=== PATIENT | male | born 1985 | race Two or more races ===

== ENCOUNTER 2017-06-19 16:11 | Emergency (ER) | payer OTHER ==
[~2017-06-19] VITALS: Ht 167.6 cm; Wt 72.0 kg
[2017-06-19] MEDS ORDERED: PLEASE ENTER HEIGHT AND WEIGHT MC SCH (16:30)
[2017-06-19] MEDS ORDERED: PLEASE ENTER ALLERGIES MC SCH ×2 (16:30)
[2017-06-19] MEDS ORDERED: LIDOCAINE 1%, 20ML INFIL ONE (16:30)
[2017-06-19] MEDS ORDERED: LIDOCAINE 1%, 20ML ONE (16:42)
[2017-06-19 18:03] VITALS: BP 117/82
== END 2017-06-19 18:06 | disposition home or self-care (01) ==
LOC: ED 18:00
DX: S01.312A Laceration without foreign body of left ear, initial encounter (principal); S20.212A Contusion of left front wall of thorax, initial encounter; W06.XXXA Fall from bed, initial encounter; Y93.89 Activity, other specified; Y92.89 Other specified places as the place of occurrence of the external cause; Y99.8 Other external cause status
CPT/HCPCS: 13151

== ENCOUNTER 2020-08-03 22:52 | Inpatient (IN) | payer BC, MEDICAID, OTHER ==
[~2020-08-03] VITALS: Ht 154.9 cm; Wt 85.7 kg
[2020-08-03] MEDS ORDERED: SODIUM CHLORIDE 0.9% 1,000 ML IV ONE (22:59)
[2020-08-03] MEDS ORDERED: SODIUM CHLORIDE FLUSH 10ML SYR IVF ONE (23:00)
[2020-08-03 23:38] LABS: ALANINE AMINOTRANSFERASE 95 U/L (12-78); ALBUMIN 1.6 g/dL (3.4-5.0); ANION GAP 9 mmol/L (5-15); CALCIUM 8.1 mg/dL (8.5-10.1); CHLORIDE 88 mmol/L (98-107); INTERNATIONAL NORMALIZED RATIO 2.96 (0.93-1.1); PROTHROMBIN TIME 30.8 Seconds (9.6-11.5)
[2020-08-03] MEDS ORDERED: LIDOCAINE 1%-EPI 1:100K, 20ML ONE (23:47)
[2020-08-03 23:48] LABS: ALKALINE PHOSPHATASE 188 U/L (45-117)
[2020-08-03 23:50] LABS: CREATININE 2.85 mg/dL (0.7-1.3); TOTAL PROTEIN 6.4 g/dL (6.4-8.2)
[2020-08-03 23:51] LABS: MD YES; MEAN CORPUSCULAR HEMOGLOBIN 34.8 pg (27.5-34.5); MEAN CORPUSCULAR HGB CONC 33.5 g/dL (33.2-36.2); MEAN PLATELET VOLUME 8.3 fL (7.4-10.4); PLATELET COUNT 136 x10^3/uL (130-400); RED BLOOD COUNT 4.25 x10^6/uL (4.38-5.82); RED CELL DISTRIBUTION WIDTH 15.9 % (9.4-14.8)
[2020-08-03 23:52] LABS: BILIRUBIN,TOTAL 25.2 mg/dL (0.2-1.0)
[2020-08-03 23:55] LABS: ANISOCYTOSIS 1+; BAND#(MANUAL) 0.12 x10^3/uL; BANDS%(MANUAL) 1 % (0-7); LYMPH#(MANUAL) 0.72 x10^3/uL (1-3.4); LYMPHS% (MANUAL) 6 % (22-44); MONOS#(MANUAL) 0.48 x10^3/uL (0.3-2.7); MONOS% (MANUAL) 4 % (2-9); SEG#(MANUAL) 10.68 x10^3/uL (1.8-6.8); SEGS% (MANUAL) 89 % (42-75)
[2020-08-03 23:56] LABS: OVALOCYTES 1+; POLYCHROMASIA 1+; TARGET CELLS 1+
[2020-08-03 23:57] LABS: <PLATELET ESTIMATE> ADEQUATE; <PLT MORPHOLOGY> NORMAL PLT MORPH
[2020-08-04] MEDS ORDERED: LIDOCAINE 1%-EPI 1:100K, 20ML INFIL ONE
--- NOTE | 2020-08-04 00:20 | NUR ---
Consent for paracentesis received by this RN with clinical transformation specialist # [id number]. Pt verbalizes understanding of procedure, provides verbal consent. MD Sung krishna
[2020-08-04] MEDS ORDERED: NS + 20MEQ KCL 1,000 ML IV SCH (01:00)
[2020-08-04] MEDS ORDERED: ONDANSETRON ODT 4 MG PO PRN (01:00)
[2020-08-04] MEDS ORDERED: BISACODYL 10 MG SUPP PR PRN (01:00)
[2020-08-04] MEDS ORDERED: CEFTRIAXONE PMX 1GM/50ML 50 ML IV SCH (01:00)
--- NOTE | 2020-08-04 01:15 | NUR ---
Report given to Liss CHAU
[2020-08-04 01:37] VITALS: BP 115/75
[2020-08-04] MEDS: ALBUMIN HUMAN 25% 100 ML IV SCH ×3 (02:01→18:41)
[2020-08-04 05:42] LABS: INTERNATIONAL NORMALIZED RATIO 3.04 (0.93-1.1); PROTHROMBIN TIME 31.7 Seconds (9.6-11.5)
[2020-08-04 05:46] LABS: ALANINE AMINOTRANSFERASE 75 U/L (12-78); ALBUMIN 1.8 g/dL (3.4-5.0); ANION GAP 10 mmol/L (5-15); CALCIUM 7.9 mg/dL (8.5-10.1); CHLORIDE 89 mmol/L (98-107)
[2020-08-04 05:49] LABS: ALKALINE PHOSPHATASE 150 U/L (45-117)
[2020-08-04 06:02] LABS: CREATININE 2.62 mg/dL (0.7-1.3)
[2020-08-04 06:03] LABS: TOTAL PROTEIN 5.7 g/dL (6.4-8.2)
[2020-08-04 06:05] LABS: BILIRUBIN,TOTAL 23.9 mg/dL (0.2-1.0)
[2020-08-04 06:30] LABS: MEAN CORPUSCULAR HEMOGLOBIN 34.9 pg (27.5-34.5); MEAN CORPUSCULAR HGB CONC 33.6 g/dL (33.2-36.2); MEAN PLATELET VOLUME 8.5 fL (7.4-10.4); PLATELET COUNT 121 x10^3/uL (130-400); RED BLOOD COUNT 3.69 x10^6/uL (4.38-5.82); RED CELL DISTRIBUTION WIDTH 16.5 % (9.4-14.8)
[2020-08-04 06:55] LABS: BASOPHILS # (AUTO) 0.02 x10^3/uL (0-0.1); BASOPHILS % (AUTO) 0 % (0-1); EOSINOPHILS # (AUTO) 0.08 x10^3/uL (0-0.4); EOSINOPHILS % (AUTO) 1 % (1-7); LYMPHOCYTES # (AUTO) 1.22 x10^3/uL (1-3.4); LYMPHOCYTES % (AUTO) 11 % (22-44); MD SCAN; MONOCYTES # (AUTO) 0.75 x10^3/uL (0.2-0.8); MONOCYTES % (AUTO) 7 % (2-9); NEUTROPHILS # (AUTO) 9.19 x10^3/uL (1.8-6.8); NEUTROPHILS % (AUTO) 82 % (42-75)
[2020-08-04 07:19] VITALS: BP 104/66
[2020-08-04] MEDS ORDERED: ALBUMIN HUMAN 25% 100 ML IV ONE (08:00)
[2020-08-04] MEDS ORDERED: PHYTONADIONE 5 MG in SODIUM CHLORIDE 0.9% 50 ML IV ONE (08:00)
[2020-08-04] MEDS ORDERED: PANTOPRAZOLE 40MG TABLET PO SCH (08:00)
[2020-08-04] MEDS ORDERED: POTASSIUM CHLORIDE 40 MEQ in SODIUM CHLORIDE 0.9% 500 ML IV ONE (08:30)
[2020-08-04] MEDS: prednisOLONE 15 MG/5 ML ORAL SOLN PO SCH (08:33)
[2020-08-04 08:59] LABS: POTASSIUM,URINE RANDOM 77 mmol/L; SODIUM,URINE RANDOM 13 mmol/L
[2020-08-04 09:01] LABS: CHLORIDE,URINE RANDOM < 10 mmol/L
[2020-08-04 09:04] LABS: MICROSCOPIC INDICATED
[2020-08-04 12:09] VITALS: BP 106/62
[2020-08-04] MEDS: NS + 40MEQ KCL 1,000 ML IV SCH (16:11)
[2020-08-04] MEDS: POTASSIUM CHLORIDE 20 MEQ TAB.ER.PRT PO SCH (17:31)
[2020-08-04 19:50] VITALS: BP 108/63
[2020-08-05 01:03] VITALS: BP 119/80
[2020-08-05] MEDS: ALBUMIN HUMAN 25% 100 ML IV SCH ×3 (03:11→20:12)
[2020-08-05 05:02] LABS: MEAN CORPUSCULAR HGB CONC 33.3 g/dL (33.2-36.2); MEAN PLATELET VOLUME 8.1 fL (7.4-10.4); PLATELET COUNT 115 x10^3/uL (130-400); RED BLOOD COUNT 3.52 x10^6/uL (4.38-5.82); RED CELL DISTRIBUTION WIDTH 16.5 % (9.4-14.8)
[2020-08-05 05:10] LABS: INTERNATIONAL NORMALIZED RATIO 2.71 (0.93-1.1); PROTHROMBIN TIME 28.2 Seconds (9.6-11.5)
[2020-08-05] MEDS: NS + 40MEQ KCL 1,000 ML IV SCH ×2 (05:12→17:37)
[2020-08-05 05:13] LABS: ALBUMIN 2.6 g/dL (3.4-5.0); ANION GAP 8 mmol/L (5-15); CALCIUM 8.2 mg/dL (8.5-10.1); CHLORIDE 93 mmol/L (98-107)
[2020-08-05 05:32] LABS: ALANINE AMINOTRANSFERASE 66 U/L (12-78); ALKALINE PHOSPHATASE 119 U/L (45-117)
[2020-08-05 05:35] LABS: CREATININE 2.14 mg/dL (0.7-1.3)
[2020-08-05 05:36] LABS: BILIRUBIN,TOTAL 25.4 mg/dL (0.2-1.0); TOTAL PROTEIN 5.7 g/dL (6.4-8.2)
[2020-08-05 05:43] LABS: BASOPHILS # (AUTO) 0.04 x10^3/uL (0-0.1); BASOPHILS % (AUTO) 0 % (0-1); EOSINOPHILS # (AUTO) 0.01 x10^3/uL (0-0.4); EOSINOPHILS % (AUTO) 0 % (1-7); LYMPHOCYTES # (AUTO) 0.76 x10^3/uL (1-3.4); LYMPHOCYTES % (AUTO) 6 % (22-44); MD SCAN; MONOCYTES # (AUTO) 0.76 x10^3/uL (0.2-0.8); MONOCYTES % (AUTO) 6 % (2-9); NEUTROPHILS # (AUTO) 10.64 x10^3/uL (1.8-6.8); NEUTROPHILS % (AUTO) 87 % (42-75)
[2020-08-05 07:16] VITALS: BP 100/63
[2020-08-05] MEDS: prednisOLONE 15 MG/5 ML ORAL SOLN PO SCH (09:01)
[2020-08-05] MEDS: K-PHOS NEUTRAL 250MG TAB PO SCH ×2 (09:01→20:14)
[2020-08-05] MEDS: FOLIC ACID 1 MG TABLET PO SCH (09:01)
[2020-08-05] MEDS: MULTIVITAMIN 1 TABLET PO SCH (09:01)
[2020-08-05] MEDS: THIAMINE 100MG TABLET PO SCH (09:01)
[2020-08-05] MEDS: POTASSIUM CHLORIDE 20 MEQ TAB.ER.PRT PO SCH ×2 (09:01→17:41)
[2020-08-05] MEDS ORDERED: POTASSIUM CHLORIDE 40 MEQ in SODIUM CHLORIDE 0.9% 500 ML IV ONE (11:30)
[2020-08-05 12:47] LABS: POTASSIUM,URINE RANDOM 61 mmol/L; SODIUM,URINE RANDOM 11 mmol/L
[2020-08-05 12:54] LABS: CHLORIDE,URINE RANDOM < 10 mmol/L
[2020-08-05 12:55] VITALS: BP 130/86
[2020-08-05 18:55] VITALS: BP 138/88
[2020-08-06 01:53] VITALS: BP 127/87
[2020-08-06] MEDS: ALBUMIN HUMAN 25% 100 ML IV SCH ×3 (04:22→20:38)
[2020-08-06 05:32] LABS: MEAN CORPUSCULAR HEMOGLOBIN 34.8 pg (27.5-34.5); MEAN PLATELET VOLUME 7.7 fL (7.4-10.4); PLATELET COUNT 123 x10^3/uL (130-400); RED BLOOD COUNT 3.52 x10^6/uL (4.38-5.82); RED CELL DISTRIBUTION WIDTH 16.3 % (9.4-14.8)
[2020-08-06 05:47] LABS: CHLORIDE 99 mmol/L (98-107)
[2020-08-06 06:11] LABS: ALANINE AMINOTRANSFERASE 64 U/L (12-78); ALBUMIN 2.9 g/dL (3.4-5.0); ALKALINE PHOSPHATASE 116 U/L (45-117); ANION GAP 8 mmol/L (5-15); CALCIUM 8.4 mg/dL (8.5-10.1)
[2020-08-06 06:15] LABS: CREATININE 1.71 mg/dL (0.7-1.3); TOTAL PROTEIN 5.6 g/dL (6.4-8.2)
[2020-08-06 06:16] LABS: BILIRUBIN,TOTAL 25.6 mg/dL (0.2-1.0)
[2020-08-06 06:42] VITALS: BP 127/71
[2020-08-06 06:46] LABS: BASOPHILS # (AUTO) 0.11 x10^3/uL (0-0.1); BASOPHILS % (AUTO) 1 % (0-1); EOSINOPHILS % (AUTO) 0 % (1-7); LYMPHOCYTES # (AUTO) 0.97 x10^3/uL (1-3.4); LYMPHOCYTES % (AUTO) 7 % (22-44); MD SCAN; MONOCYTES # (AUTO) 0.67 x10^3/uL (0.2-0.8); MONOCYTES % (AUTO) 5 % (2-9); NEUTROPHILS # (AUTO) 12.05 x10^3/uL (1.8-6.8); NEUTROPHILS % (AUTO) 87 % (42-75)
[2020-08-06] MEDS: POTASSIUM CHLORIDE 20 MEQ TAB.ER.PRT PO SCH ×2 (08:16→17:15)
[2020-08-06] MEDS: FOLIC ACID 1 MG TABLET PO SCH (08:17)
[2020-08-06] MEDS: MULTIVITAMIN 1 TABLET PO SCH (08:17)
[2020-08-06] MEDS: prednisOLONE 15 MG/5 ML ORAL SOLN PO SCH (08:17)
[2020-08-06] MEDS: THIAMINE 100MG TABLET PO SCH (08:17)
[2020-08-06 12:22] VITALS: BP 126/78
[2020-08-06 16:18] VITALS: BP 134/97
[2020-08-06 19:47] VITALS: BP 144/95
[2020-08-06] MEDS: morphine SULFATE 10 MG/ML, 1ML IVPush PRN (23:50)
[2020-08-07 03:31] VITALS: BP 157/99
[2020-08-07] MEDS: ALBUMIN HUMAN 25% 100 ML IV SCH ×3 (03:32→19:47)
[2020-08-07 06:05] LABS: MEAN CORPUSCULAR HEMOGLOBIN 35.1 pg (27.5-34.5); MEAN PLATELET VOLUME 8.1 fL (7.4-10.4); PLATELET COUNT 139 x10^3/uL (130-400); RED BLOOD COUNT 3.49 x10^6/uL (4.38-5.82); RED CELL DISTRIBUTION WIDTH 16.5 % (9.4-14.8)
[2020-08-07 06:37] LABS: BASOPHILS # (AUTO) 0.04 x10^3/uL (0-0.1); BASOPHILS % (AUTO) 0 % (0-1); EOSINOPHILS # (AUTO) 0.01 x10^3/uL (0-0.4); EOSINOPHILS % (AUTO) 0 % (1-7); LYMPHOCYTES # (AUTO) 0.96 x10^3/uL (1-3.4); LYMPHOCYTES % (AUTO) 7 % (22-44); MD SCAN; MONOCYTES # (AUTO) 0.59 x10^3/uL (0.2-0.8); MONOCYTES % (AUTO) 5 % (2-9); NEUTROPHILS # (AUTO) 11.45 x10^3/uL (1.8-6.8); NEUTROPHILS % (AUTO) 88 % (42-75)
[2020-08-07 06:41] LABS: ALBUMIN 3.3 g/dL (3.4-5.0); ANION GAP 7 mmol/L (5-15); CALCIUM 8.8 mg/dL (8.5-10.1); CHLORIDE 103 mmol/L (98-107)
[2020-08-07 07:00] LABS: ALANINE AMINOTRANSFERASE 70 U/L (12-78); ALKALINE PHOSPHATASE 117 U/L (45-117)
[2020-08-07 07:03] LABS: CREATININE 1.62 mg/dL (0.7-1.3); TOTAL PROTEIN 5.8 g/dL (6.4-8.2)
[2020-08-07 07:05] LABS: BILIRUBIN,TOTAL 26.7 mg/dL (0.2-1.0)
[2020-08-07 07:45] VITALS: BP 132/87
[2020-08-07] MEDS: THIAMINE 100MG TABLET PO SCH (08:15)
[2020-08-07] MEDS: MULTIVITAMIN 1 TABLET PO SCH (08:15)
[2020-08-07] MEDS: FOLIC ACID 1 MG TABLET PO SCH (08:15)
[2020-08-07] MEDS: POTASSIUM CHLORIDE 20 MEQ TAB.ER.PRT PO SCH ×2 (08:15→17:19)
[2020-08-07] MEDS: prednisOLONE 15 MG/5 ML ORAL SOLN PO SCH (08:16)
[2020-08-07 12:44] VITALS: BP 133/87
[2020-08-07] MEDS ORDERED: LIDOCAINE 1%, 10ML ONE (13:48)
[2020-08-07 14:10] VITALS: BP 120/82
[2020-08-07 18:55] VITALS: BP 114/72
[2020-08-08] MEDS: morphine SULFATE 10 MG/ML, 1ML IVPush PRN (01:25)
[2020-08-08 01:28] VITALS: BP 121/73
[2020-08-08] MEDS: ALBUMIN HUMAN 25% 100 ML IV SCH (04:16)
[2020-08-08 06:02] LABS: MEAN CORPUSCULAR HEMOGLOBIN 34.5 pg (27.5-34.5); MEAN CORPUSCULAR HGB CONC 32.5 g/dL (33.2-36.2); MEAN PLATELET VOLUME 8.1 fL (7.4-10.4); PLATELET COUNT 154 x10^3/uL (130-400); RED BLOOD COUNT 3.78 x10^6/uL (4.38-5.82); RED CELL DISTRIBUTION WIDTH 17.1 % (9.4-14.8)
[2020-08-08 06:08] LABS: ALBUMIN 3.1 g/dL (3.4-5.0); ANION GAP 8 mmol/L (5-15); CALCIUM 8.6 mg/dL (8.5-10.1); CHLORIDE 103 mmol/L (98-107)
[2020-08-08 06:12] LABS: ALANINE AMINOTRANSFERASE 73 U/L (12-78); ALKALINE PHOSPHATASE 123 U/L (45-117)
[2020-08-08 06:14] LABS: CREATININE 1.56 mg/dL (0.7-1.3); TOTAL PROTEIN 5.4 g/dL (6.4-8.2)
[2020-08-08 06:17] LABS: BILIRUBIN,TOTAL 24.7 mg/dL (0.2-1.0)
[2020-08-08 06:36] LABS: BASOPHILS # (AUTO) 0.09 x10^3/uL (0-0.1); BASOPHILS % (AUTO) 1 % (0-1); EOSINOPHILS # (AUTO) 0.01 x10^3/uL (0-0.4); EOSINOPHILS % (AUTO) 0 % (1-7); LYMPHOCYTES % (AUTO) 9 % (22-44); MD SCAN; MONOCYTES # (AUTO) 0.57 x10^3/uL (0.2-0.8); MONOCYTES % (AUTO) 4 % (2-9); NEUTROPHILS # (AUTO) 12.94 x10^3/uL (1.8-6.8); NEUTROPHILS % (AUTO) 87 % (42-75)
[2020-08-08 08:01] VITALS: BP 125/78
[2020-08-08] MEDS: MULTIVITAMIN 1 TABLET PO SCH (08:57)
[2020-08-08] MEDS: THIAMINE 100MG TABLET PO SCH (08:57)
[2020-08-08] MEDS: FOLIC ACID 1 MG TABLET PO SCH (08:57)
[2020-08-08] MEDS: POTASSIUM CHLORIDE 20 MEQ TAB.ER.PRT PO SCH (08:57)
[2020-08-08] MEDS ORDERED: THIA100T67 PO (09:05)
[2020-08-08] MEDS ORDERED: POTA20TA6 PO (09:05)
[2020-08-08] MEDS ORDERED: MULT-449 PO (09:05)
[2020-08-08] MEDS ORDERED: FOLI-17 PO (09:05)
[2020-08-08] MEDS ORDERED: PRED5TAB25 PO (09:05)
[2020-08-08] MEDS: prednisOLONE 15 MG/5 ML ORAL SOLN PO SCH (09:23)
== END 2020-08-08 12:20 | disposition home or self-care (01) | DRG 432 ==
LOC: ED 08-04 00:16 → EDIP 08-04 00:44 → 5SO 08-04 01:31 → DCLOUNGE 08-08 12:07
PROVIDERS: ADMIT Family Medicine; ATTEND Family Medicine
PROC: 0T9B70Z Drainage of Bladder with Drainage Device, Via Natural or Artificial Opening (ICD-10-PCS; principal; 2020-08-04)
PROC: 0W9G3ZZ Drainage of Peritoneal Cavity, Percutaneous Approach (ICD-10-PCS; 2020-08-07)
DX: K70.40 Alcoholic hepatic failure without coma (principal); K76.7 Hepatorenal syndrome; E43 Unspecified severe protein-calorie malnutrition; N17.9 Acute kidney failure, unspecified; E87.1 Hypo-osmolality and hyponatremia; D68.9 Coagulation defect, unspecified; K70.31 Alcoholic cirrhosis of liver with ascites; K70.11 Alcoholic hepatitis with ascites; E87.6 Hypokalemia; E83.39 Other disorders of phosphorus metabolism; D50.9 Iron deficiency anemia, unspecified; D53.9 Nutritional anemia, unspecified; D69.6 Thrombocytopenia, unspecified; D75.89 Other specified diseases of blood and blood-forming organs; F10.20 Alcohol dependence, uncomplicated; G40.909 Epilepsy, unspecified, not intractable, without status epilepticus; D72.829 Elevated white blood cell count, unspecified; K21.9 Gastro-esophageal reflux disease without esophagitis; Z68.35 Body mass index [BMI] 35.0-35.9, adult
CPT/HCPCS: 36415; 82042; 89051; 96374; 96375; 99285; J3490; 49083; 76770; 80053; 80074; 80307; 81001; 82140; 82436; 82570; 82607; 83615; 83690; 83735; 83970; 84100; 84133; 84300; 85025; 85610; 85730; 87070; 87086; 87205; G0378; J0696; J3430; J3480; P9047; J2270; J7040; J7510

== ENCOUNTER 2020-08-09 14:07 | Inpatient (IN) | payer MEDICAID ==
[~2020-08-09] VITALS: Ht 165.1 cm; Wt 85.4 kg
[~2020-08-09 14:07] MED LIST: FOLI-17 PO; MULT-449 PO; POTA20TA6 PO; PRED5TAB25 PO; THIA100T67 PO
--- NOTE | 2020-08-09 14:23 | NUR ---
PATIENT WALKED BACK FROM TRIAGE WITH CHIEF C/O LEFT SIDED ABDOMINAL PAIN, PATIENT REPORTS BLACK STOOLS THAT STARTED TODAY. PER PATIENT'S SPOUSE PATIENT WAS ADMITTED TO HOSPITAL RECENTLY FOR LIVER FAILURE AND DISCHARGED YESTERDAY. NO ACUTE SIGNS OF DISTRESS, CONNECTED TO VITAL SIGN MACHINE, PATIENT C/O 6-7/10 ABDOMINAL PAIN RIGHT NOW.
--- NOTE | 2020-08-09 14:56 | NUR ---
20 GAUGE IV STARTED IN RIGHT AC. EDUCATED PATIENT AND SIGNIFICANT OTHER ON NEED FOR URINE SAMPLE.
[2020-08-09] MEDS ORDERED: SODIUM CHLORIDE FLUSH 10ML SYR IVF ONE (15:00)
[2020-08-09 15:22] LABS: MEAN CORPUSCULAR HEMOGLOBIN 34.5 pg (27.5-34.5); MEAN CORPUSCULAR HGB CONC 32.3 g/dL (33.2-36.2); MEAN PLATELET VOLUME 8.2 fL (7.4-10.4); PLATELET COUNT 192 x10^3/uL (130-400); RED BLOOD COUNT 3.99 x10^6/uL (4.38-5.82); RED CELL DISTRIBUTION WIDTH 17.2 % (9.4-14.8)
[2020-08-09 15:23] LABS: ALANINE AMINOTRANSFERASE 103 U/L (12-78); ALBUMIN 2.9 g/dL (3.4-5.0); ANION GAP 8 mmol/L (5-15); CALCIUM 8.8 mg/dL (8.5-10.1); CHLORIDE 104 mmol/L (98-107)
[2020-08-09 15:32] LABS: INTERNATIONAL NORMALIZED RATIO 2.32 (0.93-1.1); PROTHROMBIN TIME 24.1 Seconds (9.6-11.5)
[2020-08-09 15:34] LABS: ALKALINE PHOSPHATASE 159 U/L (45-117)
[2020-08-09 15:40] LABS: CREATININE 1.47 mg/dL (0.7-1.3)
[2020-08-09 15:41] LABS: TOTAL PROTEIN 5.6 g/dL (6.4-8.2)
[2020-08-09 15:42] LABS: BILIRUBIN,TOTAL 27.3 mg/dL (0.2-1.0)
[2020-08-09 15:59] LABS: MICROSCOPIC INDICATED
[2020-08-09 16:00] LABS: MD YES
[2020-08-09 16:03] LABS: BAND#(MANUAL) 0.83 x10^3/uL; BANDS%(MANUAL) 5 % (0-7); EOS#(MANUAL) 0.33 x10^3/uL (0.0-0.4); EOS% (MANUAL) 2 % (1-7); LYMPH#(MANUAL) 1.16 x10^3/uL (1-3.4); LYMPHS% (MANUAL) 7 % (22-44); MONOS#(MANUAL) 1.16 x10^3/uL (0.3-2.7); MONOS% (MANUAL) 7 % (2-9); SEG#(MANUAL) 13.04 x10^3/uL (1.8-6.8); SEGS% (MANUAL) 79 % (42-75)
[2020-08-09 16:04] LABS: <PLATELET ESTIMATE> ADEQUATE; <PLT MORPHOLOGY> NORMAL PLT MORPH; POLYCHROMASIA 1+; TARGET CELLS 1+
[2020-08-09 16:06] LABS: SCHISTOCYTES 1+
--- NOTE | 2020-08-09 16:11 | NUR ---
Break RN note: Pt ambulatory to bathroom and back to bed without difficulty. Pt able to position self for comfort in bed, denies other needs.
[2020-08-09] MEDS ORDERED: SODIUM CHLORIDE FLUSH 10ML SYR IVF PRN (17:00)
--- NOTE | 2020-08-09 17:19 | NUR ---
PATIENT RESTING IN GURNEY WATCHING TV, SPOUSE AT BEDSIDE, NO SIGNS OF ACUTE DISTRESS, CONNECTED TO VITALS MACHINE, CALL LIGHT WITHIN REACH.
[2020-08-09] MEDS ORDERED: ONDANSETRON ODT 4 MG PO PRN (17:30)
[2020-08-09] MEDS ORDERED: DOCUSATE 100 MG CAPSULE PO PRN (17:30)
[2020-08-09] MEDS ORDERED: hydrALAzine 20 MG/ML, 1ML IVPush PRN (17:30)
[2020-08-09] MEDS ORDERED: ONDANSETRON 2MG/ML, 2ML IVPush PRN (17:30)
[2020-08-09] MEDS ORDERED: CEFTRIAXONE PMX 1GM/50ML 0 ML ONE (18:02)
--- NOTE | 2020-08-09 18:04 | NUR ---
BLOOD CULTURES COLLECTED PRIOR TO ABX
[2020-08-09] MEDS ORDERED: CEFTRIAXONE PMX 2GM/50ML 50 ML ONE (18:06)
[2020-08-09] MEDS: CEFTRIAXONE PMX 2GM/50ML 50 ML IV SCH (18:09)
--- NOTE | 2020-08-09 18:41 | NUR ---
REPORT CALLED TO KANDI BAGLEY ON MEDICAL TELEMETRY FOR TRANSFER OF CARE.
[2020-08-09 20:36] VITALS: BP 119/89
[2020-08-09] MEDS: PANTOPRAZOLE 40 MG IV IVPush SCH (21:43)
[2020-08-09] MEDS: MOVIPREP POWDER 1 PREP KIT PO SCH (21:43)
[2020-08-10 02:04] VITALS: BP 106/64
[2020-08-10 04:53] LABS: BASOPHILS # (AUTO) 0.24 x10^3/uL (0-0.1); BASOPHILS % (AUTO) 2 % (0-1); EOSINOPHILS # (AUTO) 0.27 x10^3/uL (0-0.4); EOSINOPHILS % (AUTO) 2 % (1-7); LYMPHOCYTES # (AUTO) 1.49 x10^3/uL (1-3.4); LYMPHOCYTES % (AUTO) 11 % (22-44); MD NO; MEAN CORPUSCULAR HEMOGLOBIN 35.3 pg (27.5-34.5); MEAN CORPUSCULAR HGB CONC 33.5 g/dL (33.2-36.2); MEAN PLATELET VOLUME 8.5 fL (7.4-10.4); MONOCYTES # (AUTO) 0.88 x10^3/uL (0.2-0.8); MONOCYTES % (AUTO) 6 % (2-9); NEUTROPHILS # (AUTO) 11.07 x10^3/uL (1.8-6.8); NEUTROPHILS % (AUTO) 79 % (42-75); PLATELET COUNT 164 x10^3/uL (130-400); RED BLOOD COUNT 3.72 x10^6/uL (4.38-5.82); RED CELL DISTRIBUTION WIDTH 17.1 % (9.4-14.8)
[2020-08-10 05:06] LABS: ALBUMIN 2.8 g/dL (3.4-5.0); ANION GAP 11 mmol/L (5-15); CALCIUM 8.8 mg/dL (8.5-10.1); CHLORIDE 108 mmol/L (98-107)
[2020-08-10 05:21] LABS: ALANINE AMINOTRANSFERASE 108 U/L (12-78); ALKALINE PHOSPHATASE 133 U/L (45-117)
[2020-08-10 05:31] LABS: CREATININE 1.37 mg/dL (0.7-1.3)
[2020-08-10 05:33] LABS: BILIRUBIN,TOTAL 25.9 mg/dL (0.2-1.0); TOTAL PROTEIN 5.3 g/dL (6.4-8.2)
[2020-08-10 07:18] VITALS: BP 116/75
[2020-08-10] MEDS ORDERED: PHYTONADIONE 10 MG/ML, 1ML SQ ONE (07:30)
[2020-08-10] MEDS: PANTOPRAZOLE 40 MG IV IVPush SCH ×2 (08:05→21:48)
[2020-08-10] MEDS: MOVIPREP POWDER 1 PREP KIT PO SCH (09:00)
[2020-08-10] MEDS ORDERED: PROPOFOL 10 MG/ML, 20ML ONE ×4 (09:09→09:32)
[2020-08-10] MEDS ORDERED: OCTREOTIDE 50 MCG/ML, 1ML (0.05MG/ML) IVPush ONE (10:00)
[2020-08-10] MEDS: MORPHINE SULFATE 4 MG/ML, 1ML IVPush PRN ×2 (10:38→17:40)
[2020-08-10] MEDS: OCTREOTIDE 500 MCG in SODIUM CHLORIDE 0.9% 99 ML IV SCH ×2 (11:04→22:28)
[2020-08-10 12:28] VITALS: BP 107/70
[2020-08-10] MEDS: CEFTRIAXONE PMX 2GM/50ML 50 ML IV SCH (17:30)
[2020-08-10 19:54] VITALS: BP 131/81
[2020-08-10] MEDS: THIAMINE 100MG TABLET PO SCH (21:48)
[2020-08-11 00:16] VITALS: BP 120/77
[2020-08-11 04:31] LABS: BASOPHILS # (AUTO) 0.05 x10^3/uL (0-0.1); BASOPHILS % (AUTO) 0 % (0-1); EOSINOPHILS # (AUTO) 0.31 x10^3/uL (0-0.4); EOSINOPHILS % (AUTO) 2 % (1-7); LYMPHOCYTES # (AUTO) 1.32 x10^3/uL (1-3.4); LYMPHOCYTES % (AUTO) 10 % (22-44); MD NO; MEAN CORPUSCULAR HEMOGLOBIN 35.4 pg (27.5-34.5); MEAN CORPUSCULAR HGB CONC 33.6 g/dL (33.2-36.2); MEAN PLATELET VOLUME 8.5 fL (7.4-10.4); MONOCYTES # (AUTO) 0.73 x10^3/uL (0.2-0.8); MONOCYTES % (AUTO) 6 % (2-9); NEUTROPHILS # (AUTO) 10.86 x10^3/uL (1.8-6.8); NEUTROPHILS % (AUTO) 82 % (42-75); PLATELET COUNT 163 x10^3/uL (130-400); RED CELL DISTRIBUTION WIDTH 17.7 % (9.4-14.8)
[2020-08-11 04:36] LABS: ALANINE AMINOTRANSFERASE 110 U/L (12-78); ALBUMIN 2.6 g/dL (3.4-5.0); ANION GAP 8 mmol/L (5-15); CALCIUM 8.1 mg/dL (8.5-10.1); CHLORIDE 104 mmol/L (98-107)
[2020-08-11 04:47] LABS: ALKALINE PHOSPHATASE 132 U/L (45-117)
[2020-08-11 04:52] LABS: CREATININE 1.46 mg/dL (0.7-1.3); TOTAL PROTEIN 5.3 g/dL (6.4-8.2)
[2020-08-11 04:53] LABS: BILIRUBIN,TOTAL 29.5 mg/dL (0.2-1.0)
[2020-08-11 05:45] VITALS: BP 119/79
[2020-08-11] MEDS: MORPHINE SULFATE 4 MG/ML, 1ML IVPush PRN (05:53)
[2020-08-11 06:50] VITALS: BP 122/75
[2020-08-11] MEDS: POTASSIUM CHLORIDE 20 MEQ TAB.ER.PRT PO SCH (09:00)
[2020-08-11] MEDS ORDERED: POTASSIUM CHLORIDE 10 MEQ TABLET.ER ONE (09:18)
[2020-08-11] MEDS: PANTOPRAZOLE 40 MG IV IVPush SCH (09:24)
[2020-08-11] MEDS: OCTREOTIDE 500 MCG in SODIUM CHLORIDE 0.9% 99 ML IV SCH (09:24)
[2020-08-11] MEDS: FOLIC ACID 1 MG TABLET PO SCH (09:25)
[2020-08-11] MEDS: MULTIVITAMIN 1 TABLET PO SCH (09:25)
[2020-08-11] MEDS: THIAMINE 100MG TABLET PO SCH ×2 (09:25→19:42)
[2020-08-11 12:02] VITALS: BP 132/79
[2020-08-11] MEDS ORDERED: LIDOCAINE 1%, 10ML ONE (12:34)
[2020-08-11] MEDS: OMEPRAZOLE 20 MG CAPSULE.DR PO SCH (15:42)
[2020-08-11] MEDS: CEFTRIAXONE PMX 2GM/50ML 50 ML IV SCH (17:23)
[2020-08-11] MEDS: OCTREOTIDE 1,250 MCG in SODIUM CHLORIDE 0.9% 247.5 ML IV PRN (18:51)
[2020-08-11 19:48] VITALS: BP 128/72
[2020-08-12 01:39] VITALS: BP 119/67
[2020-08-12 05:43] LABS: INTERNATIONAL NORMALIZED RATIO 2.16 (0.93-1.1); PROTHROMBIN TIME 22.4 Seconds (9.6-11.5)
[2020-08-12 05:48] LABS: ALANINE AMINOTRANSFERASE 102 U/L (12-78); ALBUMIN 2.4 g/dL (3.4-5.0); ANION GAP 7 mmol/L (5-15); CALCIUM 8.1 mg/dL (8.5-10.1); CHLORIDE 100 mmol/L (98-107)
[2020-08-12] MEDS: OMEPRAZOLE 20 MG CAPSULE.DR PO SCH ×2 (05:49→16:57)
[2020-08-12 05:59] LABS: ALKALINE PHOSPHATASE 135 U/L (45-117)
[2020-08-12 06:01] LABS: CREATININE 1.36 mg/dL (0.7-1.3)
[2020-08-12 06:02] LABS: TOTAL PROTEIN 5.2 g/dL (6.4-8.2)
[2020-08-12 06:03] LABS: BILIRUBIN,TOTAL 32.9 mg/dL (0.2-1.0)
[2020-08-12 06:15] LABS: MEAN CORPUSCULAR HEMOGLOBIN 35.6 pg (27.5-34.5); MEAN CORPUSCULAR HGB CONC 33.5 g/dL (33.2-36.2); MEAN PLATELET VOLUME 8.4 fL (7.4-10.4); PLATELET COUNT 156 x10^3/uL (130-400); RED BLOOD COUNT 3.64 x10^6/uL (4.38-5.82); RED CELL DISTRIBUTION WIDTH 17.2 % (9.4-14.8)
[2020-08-12 06:16] LABS: MD SCAN
[2020-08-12 06:29] VITALS: BP 117/78
[2020-08-12 06:46] LABS: BASOPHILS # (AUTO) 0.06 x10^3/uL (0-0.1); BASOPHILS % (AUTO) 0 % (0-1); EOSINOPHILS % (AUTO) 2 % (1-7); LYMPHOCYTES # (AUTO) 1.64 x10^3/uL (1-3.4); LYMPHOCYTES % (AUTO) 11 % (22-44); MONOCYTES # (AUTO) 1.25 x10^3/uL (0.2-0.8); MONOCYTES % (AUTO) 9 % (2-9); NEUTROPHILS % (AUTO) 78 % (42-75)
[2020-08-12] MEDS: MORPHINE SULFATE 4 MG/ML, 1ML IVPush PRN ×2 (07:07→19:46)
[2020-08-12] MEDS: THIAMINE 100MG TABLET PO SCH ×2 (08:18→19:46)
[2020-08-12] MEDS: POTASSIUM CHLORIDE 20 MEQ TAB.ER.PRT PO SCH (08:18)
[2020-08-12] MEDS: MULTIVITAMIN 1 TABLET PO SCH (08:19)
[2020-08-12] MEDS: FOLIC ACID 1 MG TABLET PO SCH (08:19)
[2020-08-12] MEDS ORDERED: LIDOCAINE 1%, 10ML ONE (11:28)
[2020-08-12 13:52] VITALS: BP 93/54
[2020-08-12] MEDS ORDERED: ALBUMIN HUMAN 5% 250 ML IV ONE (14:30)
[2020-08-12] MEDS: CEFTRIAXONE PMX 2GM/50ML 50 ML IV SCH (16:57)
[2020-08-12 18:45] VITALS: BP 98/57
[2020-08-13 01:47] VITALS: BP 95/54
[2020-08-13] MEDS: OMEPRAZOLE 20 MG CAPSULE.DR PO SCH ×2 (06:19→16:36)
[2020-08-13 08:01] VITALS: BP 100/62
[2020-08-13] MEDS: MULTIVITAMIN 1 TABLET PO SCH (09:10)
[2020-08-13] MEDS: POTASSIUM CHLORIDE 20 MEQ TAB.ER.PRT PO SCH (09:10)
[2020-08-13] MEDS: THIAMINE 100MG TABLET PO SCH (09:10)
[2020-08-13] MEDS: FOLIC ACID 1 MG TABLET PO SCH (09:10)
[2020-08-13] MEDS: OCTREOTIDE 1,250 MCG in SODIUM CHLORIDE 0.9% 247.5 ML IV PRN (10:04)
[2020-08-13 13:05] VITALS: BP 116/79
[2020-08-13] MEDS ORDERED: LIDOCAINE 1%, 10ML ONE (15:44)
== END 2020-08-13 17:00 | disposition home or self-care (01) | DRG 280 ==
LOC: ED 15:36 → EDIP 16:58 → 4WST 19:15 → DCLOUNGE 08-13 16:50
PROVIDERS: ADMIT Hospitalist; ATTEND Family Medicine
PROC: 0DJD8ZZ Inspection of Lower Intestinal Tract, Via Natural or Artificial Opening Endoscopic (ICD-10-PCS; 2020-08-10)
PROC: 06L38CZ Occlusion of Esophageal Vein with Extraluminal Device, Via Natural or Artificial Opening Endoscopic (ICD-10-PCS; principal; 2020-08-10 09:00)
PROC: 0W9G3ZZ Drainage of Peritoneal Cavity, Percutaneous Approach (ICD-10-PCS; 2020-08-11)
PROC: 0W9G3ZZ Drainage of Peritoneal Cavity, Percutaneous Approach (ICD-10-PCS; 2020-08-12)
PROC: 0W9G3ZZ Drainage of Peritoneal Cavity, Percutaneous Approach (ICD-10-PCS; 2020-08-13)
DX: K70.31 Alcoholic cirrhosis of liver with ascites (principal); K64.8 Other hemorrhoids; K92.1 Melena; K76.6 Portal hypertension; N17.9 Acute kidney failure, unspecified; R65.10 Systemic inflammatory response syndrome (SIRS) of non-infectious origin without acute organ dysfunction; D68.4 Acquired coagulation factor deficiency; I85.10 Secondary esophageal varices without bleeding; K70.40 Alcoholic hepatic failure without coma; G40.909 Epilepsy, unspecified, not intractable, without status epilepticus; E83.39 Other disorders of phosphorus metabolism; I10 Essential (primary) hypertension; Z20.828 Contact with and (suspected) exposure to other viral communicable diseases; K31.89 Other diseases of stomach and duodenum; I86.8 Varicose veins of other specified sites; K63.5 Polyp of colon; D72.829 Elevated white blood cell count, unspecified; D64.9 Anemia, unspecified; K21.9 Gastro-esophageal reflux disease without esophagitis; Z79.899 Other long term (current) drug therapy
CPT/HCPCS: 36415; 84145; 99285; J3490; 49083; 80053; 81001; 83690; 84100; 85014; 85018; 85025; 85610; 85730; 87040; 87086; 87635; G0378; J0696; J2354; J2704; J3430; P9041; C9113; J2270; J7050; P9045

== ENCOUNTER 2020-08-18 08:52 | Emergency (ER) | payer MEDICAID ==
[~2020-08-18] VITALS: Ht 172.7 cm; Wt 76.6 kg
[2020-08-18 08:56] VITALS: BP 102/72
[2020-08-18] MEDS ORDERED: HYDROcodone/APAP 5/325 TABLET PO ONE (09:00)
== END 2020-08-18 09:49 | disposition home or self-care (01) ==
LOC: ED 09:20
DX: K70.31 Alcoholic cirrhosis of liver with ascites (principal); K21.9 Gastro-esophageal reflux disease without esophagitis; G40.909 Epilepsy, unspecified, not intractable, without status epilepticus
CPT/HCPCS: 99283

== ENCOUNTER 2020-08-22 08:17 | Emergency (ER) | payer MEDICAID ==
[~2020-08-22] VITALS: Ht 172.7 cm; Wt 77.0 kg
[2020-08-22 10:08] LABS: BASOPHILS % (AUTO) 0 % (0-1); EOSINOPHILS % (AUTO) 0 % (1-7); LYMPHOCYTES % (AUTO) 4 % (22-44); MEAN CORPUSCULAR HEMOGLOBIN 34.8 pg (27.5-34.5); MEAN CORPUSCULAR HGB CONC 33.6 g/dL (33.2-36.2); MEAN PLATELET VOLUME 8.9 fL (7.4-10.4); MONOCYTES % (AUTO) 4 % (2-9); NEUTROPHILS % (AUTO) 91 % (42-75); PLATELET COUNT 228 x10^3/uL (130-400); RED BLOOD COUNT 4.34 x10^6/uL (4.38-5.82); RED CELL DISTRIBUTION WIDTH 18.3 % (9.4-14.8)
[2020-08-22 10:11] LABS: ALANINE AMINOTRANSFERASE 135 U/L (12-78); ALBUMIN 2.2 g/dL (3.4-5.0); ANION GAP 10 mmol/L (5-15); CALCIUM 8.5 mg/dL (8.5-10.1); CHLORIDE 94 mmol/L (98-107)
[2020-08-22 10:21] LABS: ALKALINE PHOSPHATASE 227 U/L (45-117)
[2020-08-22 10:22] LABS: CREATININE 1.37 mg/dL (0.7-1.3); TOTAL PROTEIN 5.9 g/dL (6.4-8.2)
[2020-08-22 10:24] LABS: BILIRUBIN,TOTAL 34.7 mg/dL (0.2-1.0)
[2020-08-22 10:26] LABS: MD SCAN
--- NOTE | 2020-08-22 11:36 | NUR ---
GERIATRIC PERSONAL CARE AIDE: PT TO ROOM FROM LOBBY.
--- NOTE | 2020-08-22 11:43 | NUR ---
PT HERE W DAUGHTER FROM HOME FOR BELLY TAP. LAST WEEK 4.5 LITERS OFF. HEAVY DRINKER TIL 7 WKS AGO. TOLD TO COME BACK 1 WK LATER. +FLUID WAVE. SOME PAIN. EATING/DRINKING/BREATHING OK. VSS. OOB TO BATHROOM. CALL HELEN.
--- NOTE | 2020-08-22 12:23 | NUR ---
LABS ADDED ON. VSS. NAD.
[2020-08-22] MEDS ORDERED: metroNIDAZOLE 500 MG TABLET ONE (12:56)
[2020-08-22] MEDS ORDERED: CIPROFLOXACIN 500 MG TABLET ONE (12:56)
[2020-08-22] MEDS ORDERED: CIPROFLOXACIN 500 MG TABLET PO ONE (13:00)
[2020-08-22] MEDS ORDERED: ALBUMIN HUMAN 25% 100 ML IV PRN (13:00)
[2020-08-22] MEDS ORDERED: metroNIDAZOLE 500 MG TABLET PO ONE (13:00)
[2020-08-22] MEDS ORDERED: LIDOCAINE 1%, 10ML ONE (13:09)
[2020-08-22 13:11] LABS: INTERNATIONAL NORMALIZED RATIO 2.28 (0.93-1.1); PROTHROMBIN TIME 23.7 Seconds (9.6-11.5)
--- NOTE | 2020-08-22 13:27 | NUR ---
ALBUMIN REQUESTED FROM PHARMACY.
--- NOTE | 2020-08-22 13:56 | NUR ---
ASSUMED CARE OF PATIENT. REPORT GIVEN FROM KANDI TOM PT IS IN RADIOLOGY
--- NOTE | 2020-08-22 13:59 | NUR ---
REPORT TO KRYSTYNA CHAU.
--- NOTE | 2020-08-22 15:21 | NUR ---
PT BACK FROM RADIOLOGY. SPOKE WITH JUAN MANUEL CARROLL. PROVIDER WANTS ALBUMIN GIVEN. VS STABLE. CALL LIGHT IN PLACE. WILL CONTINUE TO MONITOR.
--- NOTE | 2020-08-22 15:48 | NUR ---
JUAN MANUEL CARROLL HAS UPDATED PATIENT.
--- NOTE | 2020-08-22 16:09 | NUR ---
PT RESTING IN ROOM. NO ACUTE DISTRESS NOTED. VS STABLE. CALL LIGHT IN PLACE. WILL CONTINUE TO MONITOR.
[2020-08-22 16:40] VITALS: BP 106/70
--- NOTE | 2020-08-22 16:40 | NUR ---
JUAN MANUEL CARROLL HAS UPDATED PATIENT.
[2020-08-26] MEDS ORDERED: FURO-93 PO (07:18)
[2020-08-26] MEDS ORDERED: SPIR25TA5 PO (07:18)
[2020-08-26] MEDS ORDERED: METR-90 PO (07:18)
[2020-08-26] MEDS ORDERED: CIPR500T87 PO (07:20)
[2020-08-28] MEDS ORDERED: TRAM-47 PO (07:37)
== END 2020-08-22 16:42 | disposition home or self-care (01) ==
LOC: ED 12:03
DX: K70.30 Alcoholic cirrhosis of liver without ascites (principal); K70.11 Alcoholic hepatitis with ascites; M79.89 Other specified soft tissue disorders; R11.0 Nausea
CPT/HCPCS: 36415; 49083; 80053; 83690; 85025; 85610; 85730; 87070; 87205; 89051; 96365; 99285; J3490; P9047; 96360

== ENCOUNTER 2020-08-24 20:31 | Emergency (ER) | payer MEDICAID ==
[~2020-08-24] VITALS: Ht 172.7 cm; Wt 73.1 kg
--- NOTE | 2020-08-24 20:48 | NUR ---
Patient presents to ER c/o epigastric pain since 1400 today. Patient has a hx of liver cirrhosis and was seen last week for the same; 5L fluid removed during visit. Denies N/V. C/o constipation. Patient is in NAD. Respirations even and unlabored.
[2020-08-24] MEDS ORDERED: ONDANSETRON 2MG/ML, 2ML ONE (20:53)
[2020-08-24] MEDS ORDERED: MORPHINE SULFATE 4 MG/ML, 1ML ONE (20:53)
[2020-08-24] MEDS ORDERED: SODIUM CHLORIDE FLUSH 10ML SYR IVF ONE (21:00)
[2020-08-24] MEDS ORDERED: MORPHINE SULFATE 4 MG/ML, 1ML IVPush PRN (21:00)
[2020-08-24] MEDS ORDERED: ONDANSETRON 2MG/ML, 2ML IVPush ONE (21:00)
[2020-08-24 21:16] LABS: BASOPHILS % (AUTO) 0 % (0-1); EOSINOPHILS % (AUTO) 0 % (1-7); LYMPHOCYTES % (AUTO) 3 % (22-44); MEAN CORPUSCULAR HGB CONC 33.7 g/dL (33.2-36.2); MEAN PLATELET VOLUME 8.9 fL (7.4-10.4); MONOCYTES % (AUTO) 5 % (2-9); NEUTROPHILS % (AUTO) 91 % (42-75); PLATELET COUNT 172 x10^3/uL (130-400); RED BLOOD COUNT 3.89 x10^6/uL (4.38-5.82); RED CELL DISTRIBUTION WIDTH 18.1 % (9.4-14.8)
[2020-08-24 21:23] LABS: INTERNATIONAL NORMALIZED RATIO 2.69 (0.93-1.1)
[2020-08-24 21:25] LABS: ALANINE AMINOTRANSFERASE 108 U/L (12-78); ALBUMIN 2.1 g/dL (3.4-5.0); ANION GAP 8 mmol/L (5-15); CALCIUM 8.3 mg/dL (8.5-10.1); CHLORIDE 93 mmol/L (98-107)
[2020-08-24 21:36] LABS: ALKALINE PHOSPHATASE 207 U/L (45-117)
[2020-08-24 21:37] LABS: CREATININE 1.38 mg/dL (0.7-1.3)
[2020-08-24 21:38] LABS: TOTAL PROTEIN 4.9 g/dL (6.4-8.2)
[2020-08-24 21:45] LABS: BILIRUBIN,TOTAL 29.4 mg/dL (0.2-1.0)
[2020-08-24 21:49] LABS: MD MORPH REVIEW ONLY
--- NOTE | 2020-08-24 21:51 | NUR ---
TO CT WITH TECH.
[2020-08-24 21:53] LABS: ECHINOCYTES 2+; OVALOCYTES 1+
[2020-08-24 21:55] LABS: <PLATELET ESTIMATE> ADEQUATE; <PLT MORPHOLOGY> NORMAL PLT MORPH; ANISOCYTOSIS 1+
[2020-08-24 22:09] LABS: MICROSCOPIC INDICATED
[2020-08-24 22:33] VITALS: BP 109/72
[2020-08-26] MEDS ORDERED: FURO-93 PO (07:18)
[2020-08-26] MEDS ORDERED: METR-90 PO (07:18)
[2020-08-26] MEDS ORDERED: SPIR25TA5 PO (07:18)
[2020-08-26] MEDS ORDERED: CIPR500T87 PO (07:20)
== END 2020-08-24 23:08 | disposition home or self-care (01) ==
LOC: ED 21:43
DX: K70.31 Alcoholic cirrhosis of liver with ascites (principal); K80.20 Calculus of gallbladder without cholecystitis without obstruction; D72.829 Elevated white blood cell count, unspecified; E87.1 Hypo-osmolality and hyponatremia; R94.5 Abnormal results of liver function studies; K21.9 Gastro-esophageal reflux disease without esophagitis; G40.909 Epilepsy, unspecified, not intractable, without status epilepticus
CPT/HCPCS: 36415; 74176; 80053; 81001; 82140; 83690; 85025; 85610; 85730; 87086; 96374; 96375; 99284; J2270; J2405